=== PATIENT | male | born 1995 | race Two or more races ===

== ENCOUNTER 2019-05-05 12:50 | Emergency (ER) | payer OTHER ==
[2019-05-05 12:55] VITALS: BP 128/71
--- NOTE | 2019-05-05 13:09 | ER Document Report ---
HPI - HPI Patient complains to provider of: Concern about STD Time Seen by Provider: 05/05/19 13:01 Onset: Yesterday Pain Level: Denies Context: Patient states that his was tested for herpes and that he is here to be tested. Patient denies any abnormal skin lesions. Patient denies any penile discharge or any dysuria symptoms. Patient also reports that occasionally he will have heartburn that is relieved with Tums. Patient denies any heartburn symptoms at this time. Patient denies any abdominal pain nausea or vomiting. Associated Symptoms: None Exacerbated by: Denies Relieved by: Denies Similar symptoms previously: No Recently seen / treated by doctor: No - ROS ROS below otherwise negative: Yes Systems Reviewed and Negative: Yes All other systems reviewed and negative - CONSTITUTIONAL Constitutional: DENIES: Fever - EENT EENT: DENIES: Sore Throat - NEURO Neurology: DENIES: Headache - CARDIOVASCULAR Cardiovascular: DENIES: Chest pain - GASTROINTESTINAL Gastrointestinal: DENIES: Abdominal Pain, Nausea, Patient vomiting - URINARY Urinary: DENIES: Dysuria - DERM Skin Color: Normal Skin Problems: None Past Medical History - General Information source: Patient - Social History Smoking Status: Current Every Day Smoker Chew tobacco use (# tins/day): No Frequency of alcohol use: None Drug Abuse: None Lives with: Family Family History: Reviewed & Not Pertinent Patient has suicidal ideation: No Patient has homicidal ideation: No - Medical History Medical History: Negative Surgical Hx: Negative - Immunizations Immunizations up to date: Yes Vertical Provider Document - CONSTITUTIONAL Agree With Documented VS: Yes Exam Limitations: No Limitations General Appearance: WD/WN, No Apparent Distress - HEENT HEENT: Atraumatic, Normocephalic - NECK Neck: Normal Inspection, Supple - RESPIRATORY Respiratory: Breath Sounds Normal, No Respiratory Distress - CARDIOVASCULAR Cardiovascular: Regular Rate, Regular Rhythm - GI/ABDOMEN Gastrointestinal: Abdomen Soft, Abdomen Non-Tender, No Organomegaly - MUSCULOSKELETAL/EXTREMETIES Musculoskeletal/Extremeties: MAEW - NEURO Level of Consciousness: Awake, Alert, Appropriate Motor/Sensory: No Motor Deficit - DERM Integumentary: Warm, Dry, No Rash Course - Re-evaluation Re-evalutation: 05/05/19 13:10 Offered patient pelvic examination in addition to gonorrhea chlamydia testing, patient declines at this time. Reports no abnormal skin lesions or discharge. Patient states that was tested for herpes and he wanted to come here to get tested for herpes. Patient was advised that without any abnormal skin lesions we cannot perform this test at this time. - Vital Signs Vital signs: Temp Pulse Resp BP Pulse Ox 97.9 F 52 L 16 128/71 H 100 05/05/19 12:54 05/05/19 12:54 05/05/19 12:54 05/05/19 12:54 05/05/19 12:54 Discharge - Discharge Clinical Impression: Concern about STD in male without diagnosis GERD (gastroesophageal reflux disease) Qualifiers: Esophagitis presence: without esophagitis Qualified Code(s): K21.9 - Gastro- esophageal reflux disease without esophagitis Condition: Stable Disposition: HOME, SELF-CARE Instructions: Reflux Disease (GERD) ([facility]) Additional Instructions: Return immediately for any new or worsening symptoms Followup with your primary care provider, call tomorrow to make a followup appointment You develop any abnormal lesions to the genital area you can return and have these tested Prescriptions: Famotidine [Pepcid 20 mg Tablet] 20 mg PO BID #12 tablet Referrals: [facility] [Provider Group] - Follow up as needed
== END 2019-05-05 13:17 | disposition home or self-care (01) ==
LOC: ER 12:50
DX: Z04.89 Encounter for examination and observation for other specified reasons (principal); K21.9 Gastro-esophageal reflux disease without esophagitis; F17.200 Nicotine dependence, unspecified, uncomplicated
CPT/HCPCS: 99283

== ENCOUNTER 2019-06-14 13:41 | Emergency (ER) | payer OTHER ==
[2019-06-14 13:54] VITALS: BP 118/67
--- NOTE | 2019-06-14 14:06 | ER Document Report ---
HPI - HPI Patient complains to provider of: Concern about STD Time Seen by Provider: 06/14/19 14:01 Onset: This morning Onset/Duration: Gradual Quality of pain: No pain Pain Level: Denies Context: Patient states that after his shower he noticed small blisters to his penis and he is concerned about possible herpes. Patient denies any penile discharge. Patient denies any dysuria. Patient denies any other complaints or symptoms at this time. Associated Symptoms: None Exacerbated by: Denies Relieved by: Denies Similar symptoms previously: No Recently seen / treated by doctor: No - ROS ROS below otherwise negative: Yes Systems Reviewed and Negative: Yes All other systems reviewed and negative - CONSTITUTIONAL Constitutional: DENIES: Fever, Chills - GASTROINTESTINAL Gastrointestinal: DENIES: Abdominal Pain - URINARY Urinary: DENIES: Dysuria, Urgency, Frequency - DERM Skin Color: Normal Skin Problems: Blister Past Medical History - General Information source: Patient - Social History Smoking Status: Current Every Day Smoker Chew tobacco use (# tins/day): No Frequency of alcohol use: Heavy Drug Abuse: None Occupation: Active duty Lives with: Family Family History: Reviewed & Not Pertinent Patient has homicidal ideation: No - Medical History Medical History: Negative Surgical Hx: Negative - Immunizations Immunizations up to date: Yes Vertical Provider Document - CONSTITUTIONAL Agree With Documented VS: Yes Exam Limitations: No Limitations General Appearance: WD/WN, No Apparent Distress - HEENT HEENT: Atraumatic, Normocephalic - NECK Neck: Normal Inspection, Supple - RESPIRATORY Respiratory: Breath Sounds Normal, No Respiratory Distress - CARDIOVASCULAR Cardiovascular: Regular Rate, Regular Rhythm - REPRODUCTIVE Male Genitalia: Abnormal Inspection - Patient with 2 mm vesicular lesions to the glans of the penis, Kat RN is standby Mild bilateral inguinal lymphadenopathy - MUSCULOSKELETAL/EXTREMETIES Musculoskeletal/Extremeties: MAEW - NEURO Level of Consciousness: Awake, Alert, Appropriate Motor/Sensory: No Motor Deficit - DERM Integumentary: Warm, Dry, Rash - See above Course - Re-evaluation Re-evalutation: 06/14/19 14:10 Discussed safe sex practices and importance of good handwashing. Patient denies concerns about any other STI at this time. - Vital Signs Vital signs: Temp Pulse Resp BP Pulse Ox 98.3 F 65 16 118/67 99 06/14/19 14:01 06/14/19 13:49 06/14/19 13:49 06/14/19 13:49 06/14/19 13:49 Discharge - Discharge Clinical Impression: Genital herpes in men Condition: Stable Disposition: HOME, SELF-CARE Instructions: Genital Herpes ([facility]) Additional Instructions: Return immediately for any new or worsening symptoms Followup with your primary care provider, call tomorrow to make a followup appointment Safe sex practices Prescriptions: Valacyclovir HCl [Valtrex] 1,000 mg PO DAILY #10 tablet Referrals: [facility] [Provider Group] - Follow up as needed
== END 2019-06-14 14:20 | disposition home or self-care (01) ==
LOC: ER 13:41
DX: A60.00 Herpesviral infection of urogenital system, unspecified (principal); F17.200 Nicotine dependence, unspecified, uncomplicated
CPT/HCPCS: 99283